=== PATIENT | female | born 1950 | race Caucasian/White ===

== ENCOUNTER → 2022-09-15 | Day surgery (SDC) | payer MEDICARE, OTHER ==
[~2022-09-15] MED LIST: Cefuroxime 10 MG/ML SYRINGE EYELF SCH; Lidocaine 1% PF 2 ML SDV INJECT SCH; Pilocarpine 4% Ophth Soln 15 ML Bot EYELF SCH
[2022-09-15] MEDS: Polymyxin B/Trimethoprim 10 ML Bottle EYELF SCH ×3 (12:10→13:52)
[2022-09-15] MEDS: Brimonidine 0.2% Ophth Soln 5 ML Bottle EYELF SCH ×3 (12:10→13:52)
[2022-09-15] MEDS: Phenylephrine 2.5% Ophth Soln 2 ML Bot EYELF SCH ×5 (12:16→13:30)
[2022-09-15] MEDS: Tropicamide 1% Ophth Soln 15 ML Bottle EYELF SCH ×4 (12:18→12:43)
[2022-09-15] MEDS: Tetracaine HCl/PF 0.5% 4 ML Bottle EYEBOTH SCH ×4 (12:47→13:39)
== END ==
LOC: JD.SDS 12:15
PROVIDERS: ATTEND Ophthalmology
DX: H25.812 Combined forms of age-related cataract, left eye (principal); H18.231 Secondary corneal edema, right eye; H40.003 Preglaucoma, unspecified, bilateral; H16.103 Unspecified superficial keratitis, bilateral; H16.223 Keratoconjunctivitis sicca, not specified as Sjogren's, bilateral; H02.834 Dermatochalasis of left upper eyelid; H02.831 Dermatochalasis of right upper eyelid; Z79.899 Other long term (current) drug therapy; Z91.048 Other nonmedicinal substance allergy status; Z96.1 Presence of intraocular lens
CPT/HCPCS: 66984; A9270; J0697; J3490

== ENCOUNTER 2024-12-29 15:08 | Emergency (ER) | payer MEDICARE, OTHER | END 2024-12-29 15:50 | disposition home or self-care (01) | LOC: JD.ED 15:08 | DX: T16.2XXA Foreign body in left ear, initial encounter (principal); X58.XXXA Exposure to other specified factors, initial encounter | CPT/HCPCS: 69200; 99282-25 ==